=== PATIENT | female | born 1950 ===

== ENCOUNTER 2017-01-12 13:37 | Inpatient (IN) | payer MEDICARE ==
[2017-01-12 14:39] VITALS: BMI 20.7
[2017-01-12] MEDS ORDERED: Albuterol HFA 90 mcg/actuation (8 g) INH PRN (14:46)
[2017-01-12] MEDS ORDERED: Tiotropium 18 mcg Cap For Inhalation INH SCH (15:00)
[2017-01-12] MEDS ORDERED: Lactobacillus Acidophilus 500 MU Cap PO SCH (15:00)
--- NOTE | 2017-01-12 15:03 | CP.PCM.HP ---
History of Present Illness - History of Present Illness History of Present Illness: Patient improving well on present rx, vanco po and flagyl iv. After a conversation with ID territory sales consultant will continue the present therapy for better coverage of C.Diff and for diverticulitis. Patient presented with failure to OP rx with recurrence of colitis and diverticulitis. It is clinically necessary to continue on the present dual rx, in consideration of the significant positive clinical response, for the best interest of the patient care and prevent possible relapse of her condition. On presentation patient was clinically septic with hemodynamically instability. ID consult appreciated. Will continue care on SNF level to complete 10 days of iv and oral rx. Vanco Po schedule 01/11 to 01/25 qid 01/26 to 02/02 tid 02/02 to 02/09 od 02/10 to 02/16 eod 11/08 to 12/07 q 3 days flagyl schedule to 01/22 repeat ctscan of adb on 01/19 Present on Admission - Present on Admission Any Indicators Present on Admission: No Review of Systems - Constitutional Constitutional: As Per HPI - EENT Eyes: As Per HPI - Cardiovascular Cardiovascular: As Per HPI - Respiratory Respiratory: As Per HPI - Gastrointestinal Gastrointestinal: As Per HPI - Musculoskeletal Musculoskeletal: As Per HPI - Neurological Neurological: As Per HPI - Psychiatric Psychiatric: As Per HPI Past Patient History - Infectious Disease Hx of Infectious Diseases: None, C.diff - Tetanus Immunizations Tetanus Immunization: Unknown - Past Medical History & Family History Past Medical History?: Yes - Past Social History Smoking Status: Current Some Days Smoker - CARDIAC Hx Cardiac Disorders: Yes Hx Hypercholesterolemia: Yes - PULMONARY Hx Chronic Obstructive Pulmonary Disease (COPD): Yes - NEUROLOGICAL Hx Neurological Disorder: Yes Other/Comment: WEAKNESS - HEENT Hx HEENT Problems: No - RENAL Hx Chronic Kidney Disease: No - ENDOCRINE/METABOLIC Hx Endocrine Disorders: No - HEMATOLOGICAL/ONCOLOGICAL Hx Blood Disorders: No - INTEGUMENTARY Hx Dermatological Problems: No - MUSCULOSKELETAL/RHEUMATOLOGICAL Hx Musculoskeletal Disorders: No Hx Falls: No - GASTROINTESTINAL Hx Gastrointestinal Disorders: Yes Hx Clostridium Difficile: Yes Hx Diarrhea: Yes Hx Diverticulitis: Yes - GENITOURINARY/GYNECOLOGICAL Hx Genitourinary Disorders: No - PSYCHIATRIC Hx Psychophysiologic Disorder: Yes Hx Anxiety: Yes Hx Depression: Yes Hx Substance Use: No - SURGICAL HISTORY Hx Surgeries: Yes Hx Appendectomy: Yes - ANESTHESIA Hx Anesthesia: Yes Hx Anesthesia Reactions: No Hx Malignant Hyperthermia: No Meds Allergies/Adverse Reactions: Allergies Allergy/AdvReac Type Severity Reaction Status Date / Time No Known Allergies Allergy Verified 01/06/17 13:17 Physical Exam - Constitutional Appears: Non-toxic - Head Exam Head Exam: ATRAUMATIC, NORMAL INSPECTION, NORMOCEPHALIC - Eye Exam Eye Exam: Normal appearance - ENT Exam ENT Exam: Mucous Membranes Moist - Neck Exam Neck exam: Positive for: Full Rom - Respiratory Exam Respiratory Exam: Clear to Auscultation Bilateral - Cardiovascular Exam Cardiovascular Exam: REGULAR RHYTHM - GI/Abdominal Exam GI & Abdominal Exam: Normal Bowel Sounds - Extremities Exam Extremities exam: Positive for: normal inspection - Neurological Exam Neurological exam: Alert, CN II-XII Intact, Normal Gait, Oriented x3 - Psychiatric Exam Psychiatric exam: Normal Affect - Skin Skin Exam: Normal Color Assessment & Plan (1) Acute diverticulitis Status: Acute Priority: Medium (2) Abdominal pain Status: Acute (3) C. difficile colitis Status: Suspected Priority: High (4) COPD (chronic obstructive pulmonary disease) Status: Chronic - Assessment and Plan (Free Text) Plan: Continue rx as per above schedule
[2017-01-12] MEDS ORDERED: metroNIDAZOLE 500mg/100ml NS IVPB SCH (17:00)
[2017-01-12 17:15] VITALS: RESP 20
[2017-01-12] MEDS: METRONIDAZOLE 500 MG/100 ML IVPB SCH (18:07)
[2017-01-12] MEDS: NS IVPB SCH (18:07)
[2017-01-13] MEDS: METRONIDAZOLE 500 MG/100 ML IVPB SCH ×3 (01:33→17:00)
[2017-01-13] MEDS: NS IVPB SCH ×3 (01:33→17:00)
[2017-01-13] MEDS: Fluticasone-Salmeterol 100-50mcg Diskus IH SCH ×3 (08:17→21:38)
[2017-01-13] MEDS: Enoxaparin 40 mg Syringe SC SCH (08:18)
[2017-01-13] MEDS: Lactobacillus Acidophilus 500 MU Cap PO SCH ×2 (08:18→22:18)
[2017-01-13 10:23] LABS: BASO # 0.1 K/uL (0.0-0.2); BASO % 0.9 % (0.0-2.0); EOS # 0.5 K/uL (0.0-0.7); EOS % 6.1 % (0.0-4.0); HEMATOCRIT 39.9 % (34.0-47.0); LYMPH # 1.1 K/uL (1.0-4.3); LYMPH % 14.1 % (20.0-40.0); MEAN CELL VOLUME 90.9 fl (81.0-99.0); MEAN CORPUSCULAR HEMOGLOBIN 30.3 pg (27.0-31.0); MEAN CORPUSCULAR HGB CONC 33.4 g/dL (33.0-37.0); MONO % 13.5 % (0.0-10.0); NEUT # 5.1 K/uL (1.8-7.0); NEUT % 65.4 % (50.0-75.0); RED CELL DISTRIBUTION WIDTH 14.7 % (11.5-14.5); WHITE BLOOD COUNT 7.7 K/uL (4.8-10.8)
[2017-01-13 10:30] LABS: BLOOD UREA NITROGEN 14 mg/dl (7-17); CARBON DIOXIDE 25 mmol/L (22-30); CHLORIDE 104 mmol/L (98-107); GFR AFRICAN-AMERICAN > 60; GLUCOSE,RANDOM 125 mg/dL (65-105); POTASSIUM 3.9 MMOL/L (3.6-5.0); SODIUM 139 mmol/l (132-148)
--- NOTE | 2017-01-13 12:54 | CP.PCM.PN ---
Subjective - Date & Time of Evaluation Date of Evaluation: 01/13/17 Time of Evaluation: 12:54 - Subjective Subjective: Patient improving well Objective - Vital Signs/Intake and Output Vital Signs (last 24 hours): Temp Pulse Resp BP Pulse Ox 97.1 F L 70 20 115/69 99 01/13/17 08:11 01/13/17 08:11 01/13/17 08:11 01/13/17 08:11 01/13/17 08:11 - Medications Medications: Current Medications Albuterol (Ventolin Hfa 90 Mcg/Actuation (8 G)) 2 puff INH Q6 PRN PRN Reason: Wheezing Atorvastatin Calcium (Lipitor) 20 mg PO HS [facility] Last Admin: 01/12/17 22:03 Dose: 20 mg Enoxaparin Sodium (Lovenox) 40 mg SC DAILY [facility] PRN Reason: Protocol Last Admin: 01/13/17 08:18 Dose: 40 mg Famotidine (Pepcid) 20 mg PO BID [facility] Last Admin: 01/13/17 08:19 Dose: 20 mg Metronidazole (Flagyl 500mg/100ml Ns) 500 mls @ 500 mls/hr IVPB Q8 [facility] Last Admin: 01/13/17 08:18 Dose: 500 mls/hr Lactobacillus Acidophilus (Bacid Acidophilus) 2 cap PO Q12 [facility] Last Admin: 01/13/17 08:18 Dose: 2 cap Loratadine (Claritin) 10 mg PO DAILY [facility] Last Admin: 01/13/17 08:18 Dose: 10 mg Nicotine (Nicoderm Cq) 1 patch TD DAILY [facility] Last Admin: 01/13/17 08:19 Dose: 1 patch Fluticasone/Salmeterol (Advair Diskus 100/50) 1 puff IH Q12H [facility] Last Admin: 01/13/17 08:21 Dose: Not Given Tiotropium [place] (Spiriva) 18 mcg INH ONCE [facility] Vancomycin HCl (Vancocin (Oral/Rectal Use)) 125 mg PO TID [facility] PRN Reason: Protocol Stop: 02/02/17 22:00 Vancomycin HCl (Vancocin (Oral/Rectal Use)) 125 mg [place] QID [facility] PRN Reason: Protocol Stop: 01/25/17 20:00 Vancomycin HCl (Vancocin (Oral/Rectal Use)) 125 mg PO DAILY [facility] PRN Reason: Protocol Stop: 02/09/17 20:00 - Labs Labs: 01/13/17 10:00 01/13/17 10:00 - Constitutional Appears: No Acute Distress - Head Exam Head Exam: ATRAUMATIC, NORMAL INSPECTION, NORMOCEPHALIC - Eye Exam Eye Exam: Normal appearance - ENT Exam ENT Exam: Mucous Membranes Moist - Neck Exam Neck Exam: Full ROM - Respiratory Exam Respiratory Exam: Clear to Ausculation Bilateral - Cardiovascular Exam Cardiovascular Exam: REGULAR RHYTHM, +S1, +S2 - GI/Abdominal Exam GI & Abdominal Exam: Soft, Normal Bowel Sounds - Extremities Exam Extremities Exam: Normal Inspection - Neurological Exam Neurological Exam: Alert, Awake, CN II-XII Intact, Normal Gait, Oriented x3 - Psychiatric Exam Psychiatric exam: Normal Affect - Skin Skin Exam: Normal Color Assessment and Plan (1) Acute diverticulitis Status: Acute (2) Abdominal pain Status: Acute (3) C. difficile colitis Status: Suspected (4) COPD (chronic obstructive pulmonary disease) Status: Chronic - Assessment and Plan (Free Text) Plan: Continue present Rx.
[2017-01-13] MEDS: Vancomycin 500 mg (Oral/Rectal USE) PR SCH ×3 (13:03→21:39)
[2017-01-14] MEDS: NS IVPB SCH ×3 (00:12→16:30)
[2017-01-14] MEDS: METRONIDAZOLE 500 MG/100 ML IVPB SCH ×3 (00:12→16:30)
[2017-01-14] MEDS: Lactobacillus Acidophilus 500 MU Cap PO SCH ×2 (08:46→21:16)
[2017-01-14] MEDS: Fluticasone-Salmeterol 100-50mcg Diskus IH SCH ×2 (08:47→21:17)
[2017-01-14] MEDS: Enoxaparin 40 mg Syringe SC SCH (08:47)
[2017-01-14] MEDS: Vancomycin 500 mg (Oral/Rectal USE) PR SCH ×4 (08:49→21:17)
[2017-01-14] MEDS: Tiotropium 18 mcg Cap For Inhalation INH SCH ×2 (11:00→16:30)
--- NOTE | 2017-01-14 15:45 | CP.PCM.PN ---
Subjective - Date & Time of Evaluation Date of Evaluation: 01/14/17 Time of Evaluation: 15:45 - Subjective Subjective: Comfortable Objective - Vital Signs/Intake and Output Vital Signs (last 24 hours): Temp Pulse Resp BP Pulse Ox 97.9 F 69 20 105/65 99 01/14/17 07:37 01/14/17 07:37 01/14/17 07:37 01/14/17 07:37 01/14/17 07:37 - Medications Medications: Current Medications Albuterol (Ventolin Hfa 90 Mcg/Actuation (8 G)) 2 puff INH Q6 PRN PRN Reason: Wheezing Atorvastatin Calcium (Lipitor) 20 mg PO HS [facility] Last Admin: 01/13/17 21:38 Dose: 20 mg Enoxaparin Sodium (Lovenox) 40 mg [place] DAILY [facility] PRN Reason: Protocol Last Admin: 01/14/17 08:47 Dose: 40 mg Famotidine (Pepcid) 20 mg PO BID [facility] Last Admin: 01/14/17 08:46 Dose: 20 mg Metronidazole (Flagyl 500mg/100ml Ns) 500 mls @ 500 mls/hr IVPB Q8 [facility] Last Admin: 01/14/17 08:47 Dose: 500 mls/hr Lactobacillus Acidophilus (Bacid Acidophilus) 2 cap PO Q12 [facility] Last Admin: 01/14/17 08:46 Dose: 2 cap Loratadine (Claritin) 10 mg PO DAILY [facility] Last Admin: 01/14/17 08:46 Dose: 10 mg Nicotine (Nicoderm Cq) 1 patch TD DAILY [facility] Last Admin: 01/14/17 08:48 Dose: 1 patch Fluticasone/Salmeterol (Advair Diskus 100/50) 1 puff IH Q12H [facility] Last Admin: 01/14/17 08:47 Dose: Not Given Tiotropium [place] (Spiriva) 18 mcg INH DAILY [facility] Last Admin: 01/14/17 11:00 Dose: Not Given Vancomycin HCl (Vancocin (Oral/Rectal Use)) 125 mg PO TID [facility] PRN Reason: Protocol Stop: 02/02/17 22:00 Vancomycin HCl (Vancocin (Oral/Rectal Use)) 125 mg [place] QID [facility] PRN Reason: Protocol Stop: 01/25/17 20:00 Last Admin: 01/14/17 12:33 Dose: 125 mg Vancomycin HCl (Vancocin (Oral/Rectal Use)) 125 mg PO DAILY [facility] PRN Reason: Protocol Stop: 02/09/17 20:00 - Labs Labs: 01/13/17 10:00 01/13/17 10:00 - Constitutional Appears: No Acute Distress - Head Exam Head Exam: ATRAUMATIC, NORMAL INSPECTION, NORMOCEPHALIC - Eye Exam Eye Exam: Normal appearance - ENT Exam ENT Exam: Mucous Membranes Moist - Neck Exam Neck Exam: Full ROM - Respiratory Exam Respiratory Exam: Clear to Ausculation Bilateral - Cardiovascular Exam Cardiovascular Exam: REGULAR RHYTHM, +S1, +S2 - GI/Abdominal Exam GI & Abdominal Exam: Soft, Normal Bowel Sounds - Extremities Exam Extremities Exam: Full ROM - Neurological Exam Neurological Exam: Alert, Awake, CN II-XII Intact, Normal Gait, Oriented x3 - Psychiatric Exam Psychiatric exam: Normal Affect - Skin Skin Exam: Normal Color Assessment and Plan (1) Acute diverticulitis Status: Acute (2) Abdominal pain Status: Acute (3) C. difficile colitis Status: Suspected (4) COPD (chronic obstructive pulmonary disease) Status: Chronic - Assessment and Plan (Free Text) Plan: Continue present rx
[2017-01-15] MEDS: METRONIDAZOLE 500 MG/100 ML IVPB SCH ×3 (00:27→17:15)
[2017-01-15] MEDS: NS IVPB SCH ×3 (00:27→17:15)
[2017-01-15] MEDS: Tiotropium 18 mcg Cap For Inhalation INH SCH (08:23)
[2017-01-15] MEDS: Enoxaparin 40 mg Syringe SC SCH (08:24)
[2017-01-15] MEDS: Vancomycin 500 mg (Oral/Rectal USE) PR SCH ×4 (08:25→21:32)
[2017-01-15] MEDS: Fluticasone-Salmeterol 100-50mcg Diskus IH SCH ×2 (08:25→21:30)
[2017-01-15] MEDS: Lactobacillus Acidophilus 500 MU Cap PO SCH ×2 (08:30→21:31)
--- NOTE | 2017-01-15 10:08 | CP.PCM.CON ---
History of Present Illness - History of Present Illness History of Present Illness: This 66 year ld female, a cigarette smoker who recently quit, was admitted to [facility] for continued antibiotic therapy foe a recurrent episode of acute diverticulitis. Her respiratory status has been well controlled with the use of Breo Ellipta 100mcg once daily and Spiriva Respimat 5mcg once daily. She has been followed as an outpatient for COPD and has recently stopped smoking with the aid of Nicotine replacement patches. Her past medical history includes Bronchitis and Hyperlipidemia, but no pneumonia, asthma or tuberculosis. There are no known drug or seasonal allergies. Past Patient History - Infectious Disease Hx of Infectious Diseases: None, C.diff - Tetanus Immunizations Tetanus Immunization: Unknown - Past Medical History & Family History Past Medical History?: Yes - Past Social History Smoking Status: Light Smoker < 10 Cigarettes Daily Chewing Tobacco Use: No Cigar Use: No Alcohol: Social Drugs: Denies Home Situation {Lives}: With Family - CARDIAC Hx Hypercholesterolemia: Yes - PULMONARY Hx Chronic Obstructive Pulmonary Disease (COPD): Yes - NEUROLOGICAL Hx Neurological Disorder: Yes Other/Comment: WEAKNESS - HEENT Hx HEENT Problems: No - RENAL Hx Chronic Kidney Disease: No - ENDOCRINE/METABOLIC Hx Endocrine Disorders: No - HEMATOLOGICAL/ONCOLOGICAL Hx Blood Disorders: No - INTEGUMENTARY Hx Dermatological Problems: No - MUSCULOSKELETAL/RHEUMATOLOGICAL Hx Musculoskeletal Disorders: No Hx Falls: No - GASTROINTESTINAL Hx Clostridium Difficile: Yes Hx Diarrhea: Yes Hx Diverticulitis: Yes - GENITOURINARY/GYNECOLOGICAL Hx Genitourinary Disorders: No - PSYCHIATRIC Hx Anxiety: Yes Hx Depression: Yes Hx Substance Use: No - SURGICAL HISTORY Hx Appendectomy: Yes - ANESTHESIA Hx Anesthesia: Yes Hx Anesthesia Reactions: No Hx Malignant Hyperthermia: No Meds Allergies/Adverse Reactions: Allergies Allergy/AdvReac Type Severity Reaction Status Date / Time No Known Allergies Allergy Verified 01/06/17 13:17 - Medications Medications: Current Medications Albuterol (Ventolin Hfa 90 Mcg/Actuation (8 G)) 2 puff INH Q6 PRN PRN Reason: Wheezing Atorvastatin Calcium (Lipitor) 20 mg PO HS [facility] Last Admin: 01/14/17 21:16 Dose: 20 mg Enoxaparin Sodium (Lovenox) 40 mg SC DAILY [facility] PRN Reason: Protocol Last Admin: 01/15/17 08:24 Dose: 40 mg Famotidine (Pepcid) 20 mg PO BID [facility] Last Admin: 01/15/17 08:23 Dose: 20 mg Metronidazole (Flagyl 500mg/100ml Ns) 500 mls @ 500 mls/hr IVPB Q8 [facility] Last Admin: 01/15/17 08:30 Dose: 500 mls/hr Lactobacillus Acidophilus (Bacid Acidophilus) 2 cap PO Q12 [facility] Last Admin: 01/15/17 08:30 Dose: 2 cap Loratadine (Claritin) 10 mg PO DAILY [facility] Last Admin: 01/15/17 08:23 Dose: 10 mg Nicotine (Nicoderm Cq) 1 patch TD DAILY [facility] Last Admin: 01/15/17 08:22 Dose: 1 patch Fluticasone/Salmeterol (Advair Diskus 100/50) 1 puff IH Q12H [facility] Last Admin: 01/15/17 08:25 Dose: Not Given Tiotropium [place] (Spiriva) 18 mcg INH DAILY [facility] Last Admin: 01/15/17 08:23 Dose: 18 mcg Vancomycin HCl (Vancocin (Oral/Rectal Use)) 125 mg PO TID [facility] PRN Reason: Protocol Stop: 02/02/17 22:00 Vancomycin HCl (Vancocin (Oral/Rectal Use)) 125 mg [place] QID [facility] PRN Reason: Protocol Stop: 01/25/17 20:00 Last Admin: 01/15/17 08:25 Dose: 125 mg Vancomycin HCl (Vancocin (Oral/Rectal Use)) 125 mg PO DAILY [facility] PRN Reason: Protocol Stop: 02/09/17 20:00 Physical Exam - Additional Findings Additional findings: Thin, well-developed female in no acute distress. Her memory appears intact. She is cooperative with the examination. Follows all commands. Moves all extremities. Speech is fluid. Pharynx is pink and mucous membranes are moist. No exudate. Neck is supple and trachea is midline. No neck vein distention or carotid bruit. No dullness on chest percussion. Equal expansion. Breath sounds are diminished bilaterally. No audible rales or wheezes are heard. No bronchial breathing or egophony. Heart sounds are well heard and the rhythm is regular. No murmur. Abdomen is soft with some mild tenderness to palpation. Bowel sounds are present. No dependent edema of the lower extremities. No cyanosis. No calf tenderness. Results - Vital Signs Recent Vital Signs: Last Vital Signs Temp 98.4 F 01/15/17 08:18 Pulse 87 01/15/17 08:18 Resp 20 01/15/17 08:18 BP 90/70 L 01/15/17 08:18 Pulse Ox 87 L 01/15/17 08:18 - Labs Result Diagrams: 01/20/17 08:20 01/20/17 08:20 Assessment & Plan (1) Acute diverticulitis Status: Acute Priority: Medium (2) COPD (chronic obstructive pulmonary disease) Status: Chronic Priority: Medium - Assessment and Plan (Free Text) Plan: Resume long-acting beta agonist with long-acting muscarinic agent. - Date & Time Date: 01/15/17 Time: 10:00
[2017-01-15] MEDS ORDERED: BREO ELLIPTA INH SCH (10:11)
[2017-01-15] MEDS: BREO ELLIPTA INH SCH (12:53)
--- NOTE | 2017-01-15 13:17 | CP.PCM.PN ---
Subjective - Date & Time of Evaluation Date of Evaluation: 01/15/17 Time of Evaluation: 13:19 - Subjective Subjective: Comfortable non in distress. Objective - Vital Signs/Intake and Output Vital Signs (last 24 hours): Temp Pulse Resp BP Pulse Ox 98.4 F 87 20 90/70 L 87 L 01/15/17 08:18 01/15/17 08:18 01/15/17 08:18 01/15/17 08:18 01/15/17 08:18 - Medications Medications: Current Medications Albuterol (Ventolin Hfa 90 Mcg/Actuation (8 G)) 2 puff INH Q6 PRN PRN Reason: Wheezing Atorvastatin Calcium (Lipitor) 20 mg PO HS [facility] Last Admin: 01/14/17 21:16 Dose: 20 mg Enoxaparin Sodium (Lovenox) 40 mg SC DAILY [facility] PRN Reason: Protocol Last Admin: 01/15/17 08:24 Dose: 40 mg Famotidine (Pepcid) 20 mg PO BID [facility] Last Admin: 01/15/17 08:23 Dose: 20 mg Home Med (Patient's Own Medication) 1 unit INH DAILY [facility] Last Admin: 01/15/17 12:53 Dose: 1 unit Metronidazole (Flagyl 500mg/100ml Ns) 500 mls @ 500 mls/hr IVPB Q8 [facility] Last Admin: 01/15/17 08:30 Dose: 500 mls/hr Lactobacillus Acidophilus (Bacid Acidophilus) 2 cap PO Q12 [facility] Last Admin: 01/15/17 08:30 Dose: 2 cap Loratadine (Claritin) 10 mg PO DAILY [facility] Last Admin: 01/15/17 08:23 Dose: 10 mg Nicotine (Nicoderm Cq) 1 patch TD DAILY [facility] Last Admin: 01/15/17 08:22 Dose: 1 patch Fluticasone/Salmeterol (Advair Diskus 100/50) 1 puff IH Q12H [facility] Stop: 01/15/17 23:59 Last Admin: 01/15/17 08:25 Dose: Not Given Tiotropium [place] (Spiriva) 18 mcg INH DAILY [facility] Last Admin: 01/15/17 08:23 Dose: 18 mcg Vancomycin HCl (Vancocin (Oral/Rectal Use)) 125 mg PO TID [facility] PRN Reason: Protocol Stop: 02/02/17 22:00 Vancomycin HCl (Vancocin (Oral/Rectal Use)) 125 mg [place] QID [facility] PRN Reason: Protocol Stop: 01/25/17 20:00 Last Admin: 01/15/17 12:54 Dose: 125 mg Vancomycin HCl (Vancocin (Oral/Rectal Use)) 125 mg PO DAILY [facility] PRN Reason: Protocol Stop: 02/09/17 20:00 - Labs Labs: 01/13/17 10:00 01/13/17 10:00 - Constitutional Appears: No Acute Distress - Head Exam Head Exam: ATRAUMATIC, NORMAL INSPECTION, NORMOCEPHALIC - Eye Exam Eye Exam: Normal appearance - ENT Exam ENT Exam: Mucous Membranes Moist - Neck Exam Neck Exam: Full ROM - Respiratory Exam Respiratory Exam: Clear to Ausculation Bilateral - Cardiovascular Exam Cardiovascular Exam: REGULAR RHYTHM, +S1, +S2 - GI/Abdominal Exam GI & Abdominal Exam: Soft, Normal Bowel Sounds - Extremities Exam Extremities Exam: Full ROM - Back Exam Back Exam: vertebral tenderness - Neurological Exam Neurological Exam: Alert, Awake, CN II-XII Intact, Oriented x3 - Psychiatric Exam Psychiatric exam: Normal Affect - Skin Skin Exam: Normal Color Assessment and Plan (1) Acute diverticulitis Status: Acute (2) Abdominal pain Status: Acute (3) C. difficile colitis Status: Suspected (4) COPD (chronic obstructive pulmonary disease) Status: Chronic - Assessment and Plan (Free Text) Plan: Continue present rx.
[2017-01-16] MEDS: NS IVPB SCH ×3 (00:48→16:45)
[2017-01-16] MEDS: METRONIDAZOLE 500 MG/100 ML IVPB SCH ×3 (00:48→16:45)
[2017-01-16] MEDS: Lactobacillus Acidophilus 500 MU Cap PO SCH ×2 (08:11→22:04)
[2017-01-16] MEDS: Enoxaparin 40 mg Syringe SC SCH (08:11)
[2017-01-16] MEDS: Tiotropium 18 mcg Cap For Inhalation INH SCH (08:12)
[2017-01-16] MEDS: BREO ELLIPTA INH SCH (08:12)
[2017-01-16] MEDS: Vancomycin 500 mg (Oral/Rectal USE) PO SCH (08:13)
[2017-01-16] MEDS: Vancomycin 500 mg (Oral/Rectal USE) PR SCH ×4 (08:15→22:04)
[2017-01-16] MEDS ORDERED: Home Med 1 UNIT INH SCH (09:00)
--- NOTE | 2017-01-16 20:50 | CP.PCM.PN ---
Subjective - Date & Time of Evaluation Date of Evaluation: 01/16/17 Time of Evaluation: 20:50 - Subjective Subjective: No new complains, comfortable. Objective - Vital Signs/Intake and Output Vital Signs (last 24 hours): Temp Pulse Resp BP Pulse Ox 98.8 F 79 20 106/64 97 01/16/17 20:19 01/16/17 20:19 01/16/17 20:19 01/16/17 20:19 01/16/17 20:19 - Medications Medications: Current Medications Albuterol (Ventolin Hfa 90 Mcg/Actuation (8 G)) 2 puff INH Q6 PRN PRN Reason: Wheezing Atorvastatin Calcium (Lipitor) 20 mg PO HS [facility] Last Admin: 01/15/17 21:31 Dose: 20 mg Famotidine (Pepcid) 20 mg PO BID [facility] Last Admin: 01/16/17 16:46 Dose: 20 mg Home Med (Patient's Own Medication) 1 unit INH DAILY [facility] Last Admin: 01/16/17 08:12 Dose: 1 unit Metronidazole (Flagyl 500mg/100ml Ns) 500 mls @ 500 mls/hr IVPB Q8 [facility] Last Admin: 01/16/17 16:45 Dose: 500 mls/hr Lactobacillus Acidophilus (Bacid Acidophilus) 2 cap PO Q12 [facility] Last Admin: 01/16/17 08:11 Dose: 2 cap Loratadine (Claritin) 10 mg PO DAILY [facility] Last Admin: 01/16/17 08:13 Dose: 10 mg Nicotine (Nicoderm Cq) 1 patch TD DAILY [facility] Last Admin: 01/16/17 08:14 Dose: 1 patch Tiotropium [place] (Spiriva) 18 mcg INH DAILY [facility] Last Admin: 01/16/17 08:12 Dose: 18 mcg Vancomycin HCl (Vancocin (Oral/Rectal Use)) 125 mg PO TID [facility] PRN Reason: Protocol Stop: 02/02/17 22:00 Vancomycin HCl (Vancocin (Oral/Rectal Use)) 125 mg [place] QID [facility] PRN Reason: Protocol Stop: 01/25/17 20:00 Last Admin: 01/16/17 16:47 Dose: 125 mg Vancomycin HCl (Vancocin (Oral/Rectal Use)) 125 mg PO DAILY [facility] PRN Reason: Protocol Stop: 02/09/17 20:00 - Labs Labs: 01/13/17 10:00 01/13/17 10:00 - Constitutional Appears: No Acute Distress - Head Exam Head Exam: ATRAUMATIC, NORMAL INSPECTION, NORMOCEPHALIC - Eye Exam Eye Exam: Normal appearance - ENT Exam ENT Exam: Mucous Membranes Moist - Neck Exam Neck Exam: Full ROM - Respiratory Exam Respiratory Exam: Clear to Ausculation Bilateral - Cardiovascular Exam Cardiovascular Exam: REGULAR RHYTHM, +S1, +S2 - GI/Abdominal Exam GI & Abdominal Exam: Soft, Normal Bowel Sounds - Extremities Exam Extremities Exam: Full ROM, Normal Inspection - Back Exam Back Exam: NORMAL INSPECTION - Neurological Exam Neurological Exam: Alert, Awake, CN II-XII Intact, Normal Gait, Oriented x3 - Psychiatric Exam Psychiatric exam: Normal Affect - Skin Skin Exam: Normal Color Assessment and Plan (1) Acute diverticulitis Status: Acute (2) Abdominal pain Status: Acute (3) C. difficile colitis Status: Suspected (4) COPD (chronic obstructive pulmonary disease) Status: Chronic - Assessment and Plan (Free Text) Plan: Continue present rx
[2017-01-17] MEDS: METRONIDAZOLE 500 MG/100 ML IVPB SCH (01:04)
[2017-01-17] MEDS: NS IVPB SCH (01:04)
[2017-01-17] MEDS: Tiotropium 18 mcg Cap For Inhalation INH SCH (09:03)
[2017-01-17] MEDS: Vancomycin 500 mg (Oral/Rectal USE) PR SCH ×4 (09:05→21:21)
[2017-01-17] MEDS: BREO ELLIPTA INH SCH (09:05)
[2017-01-17] MEDS: metroNIDAZOLE 500mg/100ml NS 100 ML IVPB SCH ×2 (09:06→17:13)
[2017-01-17] MEDS: Lactobacillus Acidophilus 500 MU Cap PO SCH ×2 (09:07→21:21)
--- NOTE | 2017-01-17 10:09 | CP.PCM.PN ---
Subjective - Date & Time of Evaluation Date of Evaluation: 01/17/17 Time of Evaluation: 10:09 - Subjective Subjective: No new c/o, comfortable Objective - Vital Signs/Intake and Output Vital Signs (last 24 hours): Temp Pulse Resp BP Pulse Ox 98.2 F 67 20 104/60 95 01/17/17 08:02 01/17/17 08:02 01/17/17 08:02 01/17/17 08:02 01/17/17 08:02 - Medications Medications: Current Medications Albuterol (Ventolin Hfa 90 Mcg/Actuation (8 G)) 2 puff INH Q6 PRN PRN Reason: Wheezing Atorvastatin Calcium (Lipitor) 20 mg PO HS [facility] Last Admin: 01/16/17 22:04 Dose: 20 mg Famotidine (Pepcid) 20 mg PO BID [facility] Last Admin: 01/17/17 09:03 Dose: 20 mg Home Med (Patient's Own Medication) 1 unit INH DAILY [facility] Last Admin: 01/17/17 09:05 Dose: 1 unit Metronidazole (Flagyl 500mg/100ml Ns) 100 mls @ 100 mls/hr IVPB Q8 [facility] Last Admin: 01/17/17 09:06 Dose: 100 mls/hr Lactobacillus Acidophilus (Bacid Acidophilus) 2 cap PO Q12 [facility] Last Admin: 01/17/17 09:07 Dose: 2 cap Loratadine (Claritin) 10 mg PO DAILY [facility] Last Admin: 01/17/17 09:03 Dose: 10 mg Nicotine (Nicoderm Cq) 1 patch TD DAILY [facility] Last Admin: 01/17/17 09:04 Dose: 1 patch Tiotropium [place] (Spiriva) 18 mcg INH DAILY [facility] Last Admin: 01/17/17 09:03 Dose: 18 mcg Vancomycin HCl (Vancocin (Oral/Rectal Use)) 125 mg PO TID [facility] PRN Reason: Protocol Stop: 02/02/17 22:00 Vancomycin HCl (Vancocin (Oral/Rectal Use)) 125 mg [place] QID [facility] PRN Reason: Protocol Stop: 01/25/17 20:00 Last Admin: 01/17/17 09:05 Dose: 125 mg Vancomycin HCl (Vancocin (Oral/Rectal Use)) 125 mg PO DAILY [facility] PRN Reason: Protocol Stop: 02/09/17 20:00 - Labs Labs: 01/13/17 10:00 01/13/17 10:00 - Constitutional Appears: No Acute Distress - Head Exam Head Exam: ATRAUMATIC, NORMAL INSPECTION, NORMOCEPHALIC - Eye Exam Eye Exam: Normal appearance - ENT Exam ENT Exam: Mucous Membranes Moist - Neck Exam Neck Exam: Full ROM - Respiratory Exam Respiratory Exam: Clear to Ausculation Bilateral - Cardiovascular Exam Cardiovascular Exam: REGULAR RHYTHM, +S1, +S2 - GI/Abdominal Exam GI & Abdominal Exam: Soft, Normal Bowel Sounds - Extremities Exam Extremities Exam: Normal Inspection - Neurological Exam Neurological Exam: Alert, Awake, CN II-XII Intact, Normal Gait, Oriented x3 - Psychiatric Exam Psychiatric exam: Normal Affect - Skin Skin Exam: Normal Color Assessment and Plan (1) Acute diverticulitis Status: Acute (2) Abdominal pain Status: Acute (3) C. difficile colitis Status: Suspected (4) COPD (chronic obstructive pulmonary disease) Status: Chronic - Assessment and Plan (Free Text) Plan: Continue present rx.
[2017-01-17 10:48] LABS: BASO # 0.1 K/uL (0.0-0.2); BASO % 1.1 % (0.0-2.0); EOS # 0.3 K/uL (0.0-0.7); HEMATOCRIT 37.2 % (34.0-47.0); LYMPH % 16.5 % (20.0-40.0); MEAN CELL VOLUME 91.4 fl (81.0-99.0); MEAN CORPUSCULAR HEMOGLOBIN 30.4 pg (27.0-31.0); MEAN CORPUSCULAR HGB CONC 33.3 g/dL (33.0-37.0); MEAN PLATELET VOLUME 10.1 fl (7.2-11.7); MONO # 0.6 K/uL (0.0-0.8); MONO % 10.3 % (0.0-10.0); NEUT # 4.3 K/uL (1.8-7.0); NEUT % 68.1 % (50.0-75.0); NRBC % 0.1 % (0.0-0.0); RED CELL DISTRIBUTION WIDTH 14.9 % (11.5-14.5); WHITE BLOOD COUNT 6.3 K/uL (4.8-10.8)
[2017-01-17 11:12] LABS: BLOOD UREA NITROGEN 11 mg/dl (7-17); CALCIUM 9.3 mg/dL (8.4-10.2); CARBON DIOXIDE 27 mmol/L (22-30); CHLORIDE 104 mmol/L (98-107); GFR AFRICAN-AMERICAN > 60; GLUCOSE,RANDOM 149 mg/dL (65-105); POTASSIUM 3.7 MMOL/L (3.6-5.0); SODIUM 140 mmol/l (132-148)
[2017-01-18] MEDS: metroNIDAZOLE 500mg/100ml NS 100 ML IVPB SCH ×3 (01:53→17:24)
[2017-01-18] MEDS: BREO ELLIPTA INH SCH (08:51)
[2017-01-18] MEDS: Vancomycin 500 mg (Oral/Rectal USE) PR SCH ×4 (08:52→21:29)
[2017-01-18] MEDS: Lactobacillus Acidophilus 500 MU Cap PO SCH ×2 (08:53→21:28)
[2017-01-18] MEDS: Tiotropium 18 mcg Cap For Inhalation INH SCH (09:02)
--- NOTE | 2017-01-18 11:20 | CP.PCM.PN ---
Subjective - Date & Time of Evaluation Date of Evaluation: 01/18/17 Time of Evaluation: 11:18 - Subjective Subjective: Lying in bed comfortably, appears to be doing well on current regimen. No further complaints of abdominal discomfort. No diarrhea. Respiratory symptoms have subsided and she appears stable with the use of long- acting beta agonist as well as long acting muscarinic agent. We'll continue with the same regimen. Objective - Vital Signs/Intake and Output Vital Signs (last 24 hours): Temp Pulse Resp BP Pulse Ox 97.8 F 80 20 92/69 L 99 01/18/17 09:00 01/18/17 09:00 01/18/17 09:00 01/18/17 09:00 01/18/17 09:00 - Medications Medications: Current Medications Albuterol (Ventolin Hfa 90 Mcg/Actuation (8 G)) 2 puff INH Q6 PRN PRN Reason: Wheezing Atorvastatin Calcium (Lipitor) 20 mg PO HS [facility] Last Admin: 01/17/17 21:21 Dose: 20 mg Famotidine (Pepcid) 20 mg PO BID [facility] Last Admin: 01/18/17 08:52 Dose: 20 mg Home Med (Patient's Own Medication) 1 unit INH DAILY [facility] Last Admin: 01/18/17 08:51 Dose: 1 unit Metronidazole (Flagyl 500mg/100ml Ns) 100 mls @ 100 mls/hr IVPB Q8 [facility] Last Admin: 01/18/17 08:53 Dose: 100 mls/hr Lactobacillus Acidophilus (Bacid Acidophilus) 2 cap PO Q12 [facility] Last Admin: 01/18/17 08:53 Dose: 2 cap Loratadine (Claritin) 10 mg PO DAILY [facility] Last Admin: 01/18/17 08:52 Dose: 10 mg Nicotine (Nicoderm Cq) 1 patch TD DAILY [facility] Last Admin: 01/18/17 08:52 Dose: 1 patch Tiotropium [place] (Spiriva) 18 mcg INH DAILY [facility] Last Admin: 01/18/17 09:02 Dose: 18 mcg Vancomycin HCl (Vancocin (Oral/Rectal Use)) 125 mg PO TID [facility] PRN Reason: Protocol Stop: 02/02/17 22:00 Vancomycin HCl (Vancocin (Oral/Rectal Use)) 125 mg [place] QID [facility] PRN Reason: Protocol Stop: 01/25/17 20:00 Last Admin: 01/18/17 08:52 Dose: 125 mg Vancomycin HCl (Vancocin (Oral/Rectal Use)) 125 mg PO DAILY [facility] PRN Reason: Protocol Stop: 02/09/17 20:00 - Labs Labs: 01/17/17 10:30 01/17/17 10:30
--- NOTE | 2017-01-18 12:21 | CP.PCM.PN ---
Subjective - Date & Time of Evaluation Date of Evaluation: 01/18/17 Time of Evaluation: 12:21 - Subjective Subjective: Not in distress, comfortable. Objective - Vital Signs/Intake and Output Vital Signs (last 24 hours): Temp Pulse Resp BP Pulse Ox 97.8 F 80 20 92/69 L 99 01/18/17 09:00 01/18/17 09:00 01/18/17 09:00 01/18/17 09:00 01/18/17 09:00 - Medications Medications: Current Medications Albuterol (Ventolin Hfa 90 Mcg/Actuation (8 G)) 2 puff INH Q6 PRN PRN Reason: Wheezing Atorvastatin Calcium (Lipitor) 20 mg PO HS [facility] Last Admin: 01/17/17 21:21 Dose: 20 mg Famotidine (Pepcid) 20 mg PO BID [facility] Last Admin: 01/18/17 08:52 Dose: 20 mg Home Med (Patient's Own Medication) 1 unit INH DAILY [facility] Last Admin: 01/18/17 08:51 Dose: 1 unit Metronidazole (Flagyl 500mg/100ml Ns) 100 mls @ 100 mls/hr IVPB Q8 [facility] Last Admin: 01/18/17 08:53 Dose: 100 mls/hr Lactobacillus Acidophilus (Bacid Acidophilus) 2 cap PO Q12 [facility] Last Admin: 01/18/17 08:53 Dose: 2 cap Loratadine (Claritin) 10 mg PO DAILY [facility] Last Admin: 01/18/17 08:52 Dose: 10 mg Nicotine (Nicoderm Cq) 1 patch TD DAILY [facility] Last Admin: 01/18/17 08:52 Dose: 1 patch Tiotropium [place] (Spiriva) 18 mcg INH DAILY [facility] Last Admin: 01/18/17 09:02 Dose: 18 mcg Vancomycin HCl (Vancocin (Oral/Rectal Use)) 125 mg PO TID [facility] PRN Reason: Protocol Stop: 02/02/17 22:00 Vancomycin HCl (Vancocin (Oral/Rectal Use)) 125 mg [place] QID [facility] PRN Reason: Protocol Stop: 01/25/17 20:00 Last Admin: 01/18/17 08:52 Dose: 125 mg Vancomycin HCl (Vancocin (Oral/Rectal Use)) 125 mg PO DAILY [facility] PRN Reason: Protocol Stop: 02/09/17 20:00 - Labs Labs: 01/17/17 10:30 01/17/17 10:30 - Constitutional Appears: No Acute Distress - Head Exam Head Exam: ATRAUMATIC, NORMAL INSPECTION, NORMOCEPHALIC - Eye Exam Eye Exam: Normal appearance - ENT Exam ENT Exam: Mucous Membranes Moist - Neck Exam Neck Exam: Full ROM - Respiratory Exam Respiratory Exam: Clear to Ausculation Bilateral - GI/Abdominal Exam GI & Abdominal Exam: Soft, Normal Bowel Sounds - Extremities Exam Extremities Exam: Normal Inspection - Neurological Exam Neurological Exam: Alert, Awake, CN II-XII Intact, Normal Gait, Oriented x3 - Psychiatric Exam Psychiatric exam: Normal Affect - Skin Skin Exam: Normal Color Assessment and Plan (1) Acute diverticulitis Status: Acute (2) Abdominal pain Status: Acute (3) C. difficile colitis Status: Suspected (4) COPD (chronic obstructive pulmonary disease) Status: Chronic - Assessment and Plan (Free Text) Plan: Continue present rx Will continue iv rx x 1 week to 01/25
[2017-01-19] MEDS: metroNIDAZOLE 500mg/100ml NS 100 ML IVPB SCH ×3 (01:33→16:24)
[2017-01-19] MEDS: BREO ELLIPTA INH SCH (08:48)
[2017-01-19] MEDS: Lactobacillus Acidophilus 500 MU Cap PO SCH ×2 (08:48→21:41)
[2017-01-19] MEDS: Tiotropium 18 mcg Cap For Inhalation INH SCH (08:50)
[2017-01-19] MEDS: Vancomycin 500 mg (Oral/Rectal USE) PR SCH ×2 (08:50→12:37)
--- NOTE | 2017-01-19 14:59 | CP.PCM.PN ---
Subjective - Date & Time of Evaluation Date of Evaluation: 01/19/17 Time of Evaluation: 14:59 - Subjective Subjective: Comfortable Objective - Vital Signs/Intake and Output Vital Signs (last 24 hours): Temp Pulse Resp BP Pulse Ox 98.1 F 72 20 101/63 97 01/19/17 08:24 01/19/17 08:24 01/19/17 08:24 01/19/17 08:24 01/19/17 08:24 - Medications Medications: Current Medications Acetaminophen (Tylenol 325mg Tab) 325 mg PO Q6 PRN PRN Reason: Pain, moderate (4-7) Albuterol (Ventolin Hfa 90 Mcg/Actuation (8 G)) 2 puff INH Q6 PRN PRN Reason: Wheezing Atorvastatin Calcium (Lipitor) 20 mg PO HS [facility] Last Admin: 01/18/17 21:29 Dose: 20 mg Famotidine (Pepcid) 20 mg PO BID [facility] Last Admin: 01/19/17 08:49 Dose: 20 mg Home Med (Patient's Own Medication) 1 unit INH DAILY [facility] Last Admin: 01/19/17 08:48 Dose: 1 unit Metronidazole (Flagyl 500mg/100ml Ns) 100 mls @ 100 mls/hr IVPB Q8 [facility] Last Admin: 01/19/17 08:49 Dose: 100 mls/hr Lactobacillus Acidophilus (Bacid Acidophilus) 2 cap PO Q12 [facility] Last Admin: 01/19/17 08:48 Dose: 2 cap Loratadine (Claritin) 10 mg PO DAILY [facility] Last Admin: 01/19/17 08:50 Dose: 10 mg Nicotine (Nicoderm Cq) 1 patch TD DAILY [facility] Last Admin: 01/19/17 08:49 Dose: 1 patch Tiotropium [place] (Spiriva) 18 mcg INH DAILY [facility] Last Admin: 01/19/17 08:50 Dose: 18 mcg Vancomycin HCl (Vancocin (Oral/Rectal Use)) 125 mg PO TID [facility] PRN Reason: Protocol Stop: 02/02/17 22:00 Vancomycin HCl (Vancocin (Oral/Rectal Use)) 125 mg PO DAILY [facility] PRN Reason: Protocol Stop: 02/09/17 20:00 - Labs Labs: 01/17/17 10:30 01/17/17 10:30 - Constitutional Appears: No Acute Distress - Head Exam Head Exam: ATRAUMATIC, NORMAL INSPECTION, NORMOCEPHALIC - Eye Exam Eye Exam: Normal appearance - ENT Exam ENT Exam: Mucous Membranes Moist - Neck Exam Neck Exam: Full ROM - Respiratory Exam Respiratory Exam: Clear to Ausculation Bilateral - Cardiovascular Exam Cardiovascular Exam: REGULAR RHYTHM, +S1, +S2 - GI/Abdominal Exam GI & Abdominal Exam: Normal Bowel Sounds - Extremities Exam Extremities Exam: Full ROM - Neurological Exam Neurological Exam: Alert, Awake, CN II-XII Intact, Normal Gait, Oriented x3 - Psychiatric Exam Psychiatric exam: Normal Affect - Skin Skin Exam: Normal Color Assessment and Plan (1) Acute diverticulitis Status: Acute (2) Abdominal pain Status: Acute (3) C. difficile colitis Status: Suspected (4) COPD (chronic obstructive pulmonary disease) Status: Chronic - Assessment and Plan (Free Text) Plan: Continue present Rx
[2017-01-19] MEDS: Vancomycin 500 mg (Oral/Rectal USE) PO SCH ×2 (17:47→21:41)
[2017-01-20] MEDS: metroNIDAZOLE 500mg/100ml NS 100 ML IVPB SCH ×3 (01:50→17:35)
[2017-01-20] MEDS: Lactobacillus Acidophilus 500 MU Cap PO SCH ×2 (08:29→21:00)
[2017-01-20] MEDS: BREO ELLIPTA INH SCH (08:30)
[2017-01-20] MEDS: Tiotropium 18 mcg Cap For Inhalation INH SCH (08:31)
[2017-01-20] MEDS: Vancomycin 500 mg (Oral/Rectal USE) PO SCH ×5 (08:32→21:24)
[2017-01-20 09:29] LABS: BASO # 0.1 K/uL (0.0-0.2); EOS # 0.2 K/uL (0.0-0.7); EOS % 2.5 % (0.0-4.0); HEMATOCRIT 39.5 % (34.0-47.0); LYMPH # 1.5 K/uL (1.0-4.3); LYMPH % 18.2 % (20.0-40.0); MEAN CELL VOLUME 90.8 fl (81.0-99.0); MEAN CORPUSCULAR HEMOGLOBIN 30.9 pg (27.0-31.0); MEAN PLATELET VOLUME 10.3 fl (7.2-11.7); MONO # 0.4 K/uL (0.0-0.8); NEUT % 73.3 % (50.0-75.0); NRBC % 0.1 % (0.0-0.0); WHITE BLOOD COUNT 8.2 K/uL (4.8-10.8)
[2017-01-20 09:43] LABS: BLOOD UREA NITROGEN 15 mg/dl (7-17); CALCIUM 9.3 mg/dL (8.4-10.2); CARBON DIOXIDE 24 mmol/L (22-30); CHLORIDE 103 mmol/L (98-107); GFR AFRICAN-AMERICAN > 60; GLUCOSE,RANDOM 187 mg/dL (65-105); POTASSIUM 3.7 MMOL/L (3.6-5.0); SODIUM 138 mmol/l (132-148)
--- NOTE | 2017-01-20 10:59 | CP.PCM.PN ---
Subjective - Date & Time of Evaluation Date of Evaluation: 01/20/17 Time of Evaluation: 10:57 - Subjective Subjective: Appears stable from a respiratory standpoint. Remains on parenteral antibiotic therapy. Lungs are clear to percussion and auscultation. Continue same regimen. Objective - Vital Signs/Intake and Output Vital Signs (last 24 hours): Temp Pulse Resp BP Pulse Ox 98.4 F 71 20 107/65 97 01/20/17 07:59 01/20/17 07:59 01/20/17 07:59 01/20/17 07:59 01/20/17 07:59 - Medications Medications: Current Medications Acetaminophen (Tylenol 325mg Tab) 325 mg PO Q6 PRN PRN Reason: Pain, moderate (4-7) Albuterol (Ventolin Hfa 90 Mcg/Actuation (8 G)) 2 puff INH Q6 PRN PRN Reason: Wheezing Atorvastatin Calcium (Lipitor) 20 mg PO HS [facility] Last Admin: 01/19/17 21:41 Dose: 20 mg Famotidine (Pepcid) 20 mg PO BID [facility] Last Admin: 01/20/17 08:31 Dose: 20 mg Home Med (Patient's Own Medication) 1 unit INH DAILY [facility] Last Admin: 01/20/17 08:30 Dose: 1 unit Metronidazole (Flagyl 500mg/100ml Ns) 100 mls @ 100 mls/hr IVPB Q8 [facility] Last Admin: 01/20/17 08:30 Dose: 100 mls/hr Lactobacillus Acidophilus (Bacid Acidophilus) 2 cap PO Q12 [facility] Last Admin: 01/20/17 08:29 Dose: 2 cap Loratadine (Claritin) 10 mg PO DAILY [facility] Last Admin: 01/20/17 08:31 Dose: 10 mg Nicotine (Nicoderm Cq) 1 patch TD DAILY [facility] Last Admin: 01/20/17 08:37 Dose: 1 patch Tiotropium [place] (Spiriva) 18 mcg INH DAILY [facility] Last Admin: 01/20/17 08:31 Dose: 18 mcg Vancomycin HCl (Vancocin (Oral/Rectal Use)) 125 mg PO TID [facility] PRN Reason: Protocol Stop: 02/02/17 22:00 Vancomycin HCl (Vancocin (Oral/Rectal Use)) 125 mg PO DAILY [facility] PRN Reason: Protocol Stop: 02/09/17 20:00 Vancomycin HCl (Vancocin (Oral/Rectal Use)) 125 mg PO QID [facility] PRN Reason: Protocol Last Admin: 01/20/17 08:32 Dose: 125 mg - Labs Labs: 01/20/17 08:20 01/20/17 08:20
--- NOTE | 2017-01-20 13:43 | CP.PCM.PN ---
Subjective - Date & Time of Evaluation Date of Evaluation: 01/20/17 Time of Evaluation: 13:44 - Subjective Subjective: Patient comfortable. Will hold CT scan she is clinically stable. Will continue iv rx until this Wednesday and will continue po vanco as per schedule Objective - Vital Signs/Intake and Output Vital Signs (last 24 hours): Temp Pulse Resp BP Pulse Ox 98.4 F 71 20 107/65 97 01/20/17 07:59 01/20/17 07:59 01/20/17 07:59 01/20/17 07:59 01/20/17 07:59 - Medications Medications: Current Medications Acetaminophen (Tylenol 325mg Tab) 325 mg PO Q6 PRN PRN Reason: Pain, moderate (4-7) Albuterol (Ventolin Hfa 90 Mcg/Actuation (8 G)) 2 puff INH Q6 PRN PRN Reason: Wheezing Atorvastatin Calcium (Lipitor) 20 mg PO HS [facility] Last Admin: 01/19/17 21:41 Dose: 20 mg Famotidine (Pepcid) 20 mg PO BID [facility] Last Admin: 01/20/17 08:31 Dose: 20 mg Home Med (Patient's Own Medication) 1 unit INH DAILY [facility] Last Admin: 01/20/17 08:30 Dose: 1 unit Metronidazole (Flagyl 500mg/100ml Ns) 100 mls @ 100 mls/hr IVPB Q8 [facility] Last Admin: 01/20/17 08:30 Dose: 100 mls/hr Lactobacillus Acidophilus (Bacid Acidophilus) 2 cap PO Q12 [facility] Last Admin: 01/20/17 08:29 Dose: 2 cap Loratadine (Claritin) 10 mg PO DAILY [facility] Last Admin: 01/20/17 08:31 Dose: 10 mg Nicotine (Nicoderm Cq) 1 patch TD DAILY [facility] Last Admin: 01/20/17 08:37 Dose: 1 patch Tiotropium [place] (Spiriva) 18 mcg INH DAILY [facility] Last Admin: 01/20/17 08:31 Dose: 18 mcg Vancomycin HCl (Vancocin (Oral/Rectal Use)) 125 mg PO TID [facility] PRN Reason: Protocol Stop: 02/02/17 22:00 Vancomycin HCl (Vancocin (Oral/Rectal Use)) 125 mg PO DAILY [facility] PRN Reason: Protocol Stop: 02/09/17 20:00 Vancomycin HCl (Vancocin (Oral/Rectal Use)) 125 mg PO QID [facility] PRN Reason: Protocol Last Admin: 01/20/17 13:00 Dose: 125 mg - Labs Labs: 01/20/17 08:20 01/20/17 08:20 - Constitutional Appears: No Acute Distress - Head Exam Head Exam: ATRAUMATIC, NORMAL INSPECTION, NORMOCEPHALIC - Eye Exam Eye Exam: Normal appearance - ENT Exam ENT Exam: Mucous Membranes Moist - Neck Exam Neck Exam: Full ROM - Respiratory Exam Respiratory Exam: Clear to Ausculation Bilateral - Cardiovascular Exam Cardiovascular Exam: REGULAR RHYTHM, +S1, +S2 - GI/Abdominal Exam GI & Abdominal Exam: Soft, Normal Bowel Sounds - Extremities Exam Extremities Exam: Full ROM - Neurological Exam Neurological Exam: Alert, Awake, CN II-XII Intact, Normal Gait, Oriented x3 - Psychiatric Exam Psychiatric exam: Normal Affect - Skin Skin Exam: Normal Color Assessment and Plan (1) Acute diverticulitis Status: Acute (2) Abdominal pain Status: Acute (3) C. difficile colitis Status: Suspected (4) COPD (chronic obstructive pulmonary disease) Status: Chronic - Assessment and Plan (Free Text) Plan: Continue present rx.
[2017-01-21] MEDS: metroNIDAZOLE 500mg/100ml NS 100 ML IVPB SCH ×3 (01:46→16:38)
[2017-01-21] MEDS: Tiotropium 18 mcg Cap For Inhalation INH SCH (09:16)
[2017-01-21] MEDS: BREO ELLIPTA INH SCH (09:17)
[2017-01-21] MEDS: Vancomycin 500 mg (Oral/Rectal USE) PO SCH ×4 (09:18→21:18)
[2017-01-21] MEDS: Lactobacillus Acidophilus 500 MU Cap PO SCH ×2 (12:28→21:17)
--- NOTE | 2017-01-21 12:43 | CP.PCM.PN ---
Subjective - Date & Time of Evaluation Date of Evaluation: 01/21/17 Time of Evaluation: 12:43 - Subjective Subjective: Improving well Objective - Vital Signs/Intake and Output Vital Signs (last 24 hours): Temp Pulse Resp BP Pulse Ox 97.7 F 64 20 90/59 L 100 01/21/17 07:42 01/21/17 07:42 01/21/17 07:42 01/21/17 07:42 01/21/17 07:42 - Medications Medications: Current Medications Acetaminophen (Tylenol 325mg Tab) 325 mg PO Q6 PRN PRN Reason: Pain, moderate (4-7) Albuterol (Ventolin Hfa 90 Mcg/Actuation (8 G)) 2 puff INH Q6 PRN PRN Reason: Wheezing Atorvastatin Calcium (Lipitor) 20 mg PO HS [facility] Last Admin: 01/20/17 21:23 Dose: 20 mg Famotidine (Pepcid) 20 mg PO BID [facility] Last Admin: 01/21/17 09:16 Dose: 20 mg Home Med (Patient's Own Medication) 1 unit INH DAILY [facility] Last Admin: 01/21/17 09:17 Dose: 1 unit Metronidazole (Flagyl 500mg/100ml Ns) 100 mls @ 100 mls/hr IVPB Q8 [facility] Last Admin: 01/21/17 09:17 Dose: 100 mls/hr Lactobacillus Acidophilus (Bacid Acidophilus) 2 cap PO Q12 [facility] Last Admin: 01/21/17 12:28 Dose: 2 cap Loratadine (Claritin) 10 mg PO DAILY [facility] Last Admin: 01/21/17 09:16 Dose: 10 mg Nicotine (Nicoderm Cq) 1 patch TD DAILY [facility] Last Admin: 01/21/17 09:16 Dose: 1 patch Tiotropium [place] (Spiriva) 18 mcg INH DAILY [facility] Last Admin: 01/21/17 09:16 Dose: 18 mcg Vancomycin HCl (Vancocin (Oral/Rectal Use)) 125 mg PO TID [facility] PRN Reason: Protocol Stop: 02/02/17 22:00 Last Admin: 01/20/17 21:24 Dose: 125 mg Vancomycin HCl (Vancocin (Oral/Rectal Use)) 125 mg PO DAILY [facility] PRN Reason: Protocol Stop: 02/09/17 20:00 Vancomycin HCl (Vancocin (Oral/Rectal Use)) 125 mg PO QID [facility] PRN Reason: Protocol Last Admin: 01/21/17 12:29 Dose: 125 mg - Labs Labs: 01/20/17 08:20 01/20/17 08:20 - Constitutional Appears: No Acute Distress - Head Exam Head Exam: ATRAUMATIC, NORMAL INSPECTION, NORMOCEPHALIC - Eye Exam Eye Exam: Normal appearance - ENT Exam ENT Exam: Mucous Membranes Moist - Neck Exam Neck Exam: Full ROM - Respiratory Exam Respiratory Exam: Clear to Ausculation Bilateral - Cardiovascular Exam Cardiovascular Exam: REGULAR RHYTHM, +S1, +S2 - GI/Abdominal Exam GI & Abdominal Exam: Soft, Normal Bowel Sounds - Neurological Exam Neurological Exam: Alert, Awake, CN II-XII Intact, Normal Gait, Oriented x3 - Psychiatric Exam Psychiatric exam: Normal Affect - Skin Skin Exam: Normal Color Assessment and Plan (1) Acute diverticulitis Status: Acute (2) Abdominal pain Status: Acute (3) C. difficile colitis Status: Suspected (4) COPD (chronic obstructive pulmonary disease) Status: Chronic - Assessment and Plan (Free Text) Plan: Continue present rx.
[2017-01-22] MEDS: metroNIDAZOLE 500mg/100ml NS 100 ML IVPB SCH ×3 (01:15→16:15)
[2017-01-22 08:01] VITALS: O2SAT 99
[2017-01-22] MEDS: Lactobacillus Acidophilus 500 MU Cap PO SCH (08:22)
[2017-01-22] MEDS: Vancomycin 500 mg (Oral/Rectal USE) PO SCH ×4 (08:22→16:15)
[2017-01-22] MEDS: Tiotropium 18 mcg Cap For Inhalation INH SCH (08:22)
[2017-01-22] MEDS: BREO ELLIPTA INH SCH (08:22)
--- NOTE | 2017-01-22 11:12 | CP.PCM.PN ---
Subjective - Date & Time of Evaluation Date of Evaluation: 01/22/17 Time of Evaluation: 11:12 Objective - Vital Signs/Intake and Output Vital Signs (last 24 hours): Temp Pulse Resp BP Pulse Ox 97.6 F 61 20 107/67 99 01/22/17 08:00 01/22/17 08:00 01/22/17 08:00 01/22/17 08:00 01/22/17 08:00 - Medications Medications: Current Medications Acetaminophen (Tylenol 325mg Tab) 325 mg PO Q6 PRN PRN Reason: Pain, moderate (4-7) Albuterol (Ventolin Hfa 90 Mcg/Actuation (8 G)) 2 puff INH Q6 PRN PRN Reason: Wheezing Atorvastatin Calcium (Lipitor) 20 mg PO HS [facility] Last Admin: 01/21/17 21:18 Dose: 20 mg Famotidine (Pepcid) 20 mg PO BID [facility] Last Admin: 01/22/17 08:22 Dose: 20 mg Home Med (Patient's Own Medication) 1 unit INH DAILY [facility] Last Admin: 01/22/17 08:22 Dose: 1 unit Metronidazole (Flagyl 500mg/100ml Ns) 100 mls @ 100 mls/hr IVPB Q8 [facility] Last Admin: 01/22/17 09:47 Dose: 100 mls/hr Lactobacillus Acidophilus (Bacid Acidophilus) 2 cap PO Q12 [facility] Last Admin: 01/22/17 08:22 Dose: 2 cap Loratadine (Claritin) 10 mg PO DAILY [facility] Last Admin: 01/22/17 08:22 Dose: 10 mg Nicotine (Nicoderm Cq) 1 patch TD DAILY [facility] Last Admin: 01/22/17 08:21 Dose: 1 patch Tiotropium [place] (Spiriva) 18 mcg INH DAILY [facility] Last Admin: 01/22/17 08:22 Dose: 18 mcg Vancomycin HCl (Vancocin (Oral/Rectal Use)) 125 mg PO TID [facility] PRN Reason: Protocol Stop: 02/02/17 22:00 Last Admin: 01/22/17 08:22 Dose: 125 mg Vancomycin HCl (Vancocin (Oral/Rectal Use)) 125 mg PO DAILY [facility] PRN Reason: Protocol Stop: 02/09/17 20:00 Vancomycin HCl (Vancocin (Oral/Rectal Use)) 125 mg PO QID [facility] PRN Reason: Protocol Last Admin: 01/21/17 21:18 Dose: 125 mg - Labs Labs: 01/20/17 08:20 01/20/17 08:20 Assessment and Plan (1) Acute diverticulitis Status: Acute (2) COPD (chronic obstructive pulmonary disease) Status: Chronic
--- NOTE | 2017-01-22 11:49 | CP.PCM.DIS ---
Provider - Provider Date of Admission: 01/12/17 14:40 Attending physician: Juan Davis MD Primary care physician: Juan Davis MD Time Spent in preparation of Discharge (in minutes): 30 Diagnosis - Discharge Diagnosis (1) Acute diverticulitis Status: Acute Priority: Medium (2) Abdominal pain Status: Acute (3) C. difficile colitis Status: Suspected Priority: High (4) COPD (chronic obstructive pulmonary disease) Status: Chronic Priority: Medium Hospital Course - Lab Results Lab Results: Most Recent Lab Values WBC 8.2 K/uL (4.8-10.8) 01/20/17 08:20 RBC 4.35 Mil/uL (3.80-5.20) 01/20/17 08:20 Hgb 13.4 g/dL (12.0-16.0) 01/20/17 08:20 Hct 39.5 % (34.0-47.0) 01/20/17 08:20 MCV 90.8 fl (81.0-99.0) 01/20/17 08:20 MCH 30.9 pg (27.0-31.0) 01/20/17 08:20 MCHC 34.0 g/dL (33.0-37.0) 01/20/17 08:20 RDW 15.0 % (11.5-14.5) H 01/20/17 08:20 Plt Count 335 K/uL (130-400) 01/20/17 08:20 MPV 10.3 fl (7.2-11.7) 01/20/17 08:20 Neut % (Auto) 73.3 % (50.0-75.0) 01/20/17 08:20 Lymph % (Auto) 18.2 % (20.0-40.0) L 01/20/17 08:20 [place] % (Auto) 5.0 % (0.0-10.0) 01/20/17 08:20 Eos % (Auto) 2.5 % (0.0-4.0) 01/20/17 08:20 Baso % (Auto) 1.0 % (0.0-2.0) 01/20/17 08:20 Neut # 6.0 K/uL (1.8-7.0) 01/20/17 08:20 Lymph # 1.5 K/uL (1.0-4.3) 01/20/17 08:20 [place] # 0.4 K/uL (0.0-0.8) 01/20/17 08:20 Eos # 0.2 K/uL (0.0-0.7) 01/20/17 08:20 Baso # 0.1 K/uL (0.0-0.2) 01/20/17 08:20 Sodium 138 mmol/l (132-148) 01/20/17 08:20 Potassium 3.7 MMOL/L (3.6-5.0) 01/20/17 08:20 Chloride 103 mmol/L (98-107) 01/20/17 08:20 Carbon Dioxide 24 mmol/L (22-30) 01/20/17 08:20 Anion Gap 15 (10-20) 01/20/17 08:20 BUN 15 mg/dl (7-17) 01/20/17 08:20 Creatinine 1.0 mg/dl (0.7-1.2) 01/20/17 08:20 Est GFR ( Amer) > 60 01/20/17 08:20 Est GFR (Non-Af Amer) 55 01/20/17 08:20 Random Glucose 187 mg/dL (65-105) H 01/20/17 08:20 Calcium 9.3 mg/dL (8.4-10.2) 01/20/17 08:20 - Hospital Course Hospital Course: Patient improving well on present rx, vanco po and flagyl iv. After a conversation with ID media sales consultant will continue the present therapy for better coverage of C.Diff and for diverticulitis. Patient presented with failure to OP rx with recurrence of colitis and diverticulitis. It was clinically necessary to continue on the present dual rx, in consideration of the significant positive clinical response, for the best interest of the patient care and prevent possible relapse of her condition.Will continue po vanco at home on schedule as instructed, F/U in my office in 2 weeks f/u with GI in 4 weeks patient and family are aware of necessity to have colonoscopy to r/o cancer. Discharge Exam - Head Exam Head Exam: ATRAUMATIC, NORMAL INSPECTION, NORMOCEPHALIC - Eye Exam Eye Exam: Normal appearance Pupil Exam: NORMAL ACCOMODATION - ENT Exam ENT Exam: Mucous Membranes Moist - Neck Exam Neck exam: Full Rom - Respiratory Exam Respiratory Exam: Clear to PA & Lateral - Cardiovascular Exam Cardiovascular Exam: REGULAR RHYTHM, +S1, +S2 - GI/Abdominal Exam GI & Abdominal Exam: Normal Bowel Sounds - Extremities Exam Extremities exam: normal inspection - Neurological Exam Neurological exam: Alert, CN II-XII Intact, Normal Gait, Oriented x3, Reflexes Normal - Psychiatric Exam Psychiatric exam: Normal Affect - Skin Skin Exam: Normal Color Discharge Plan - Follow Up Plan Condition: GOOD Disposition: HOME/ ROUTINE Referrals: Juan Davis MD [Primary Care Provider] -
[2017-01-22 16:11] VITALS: BP 118/83; PULSE 68; TEMP 97.7
[2017-02-02] MEDS ORDERED: Vancomycin 500 mg (Oral/Rectal USE) PO SCH (09:00)
== END 2017-01-22 18:16 | disposition home or self-care (01) | DRG 392 ==
LOC: H.TCU 14:40
PROVIDERS: ADMIT Internal Medicine; ATTEND Internal Medicine
PROC: 3E03329 Introduction of Other Anti-infective into Peripheral Vein, Percutaneous Approach (ICD-10-PCS; principal; 2017-01-12)
PROC: F07Z9FZ Gait Training/Functional Ambulation Treatment using Assistive, Adaptive, Supportive or Protective Equipment (ICD-10-PCS; 2017-01-12)
PROC: F08Z4FZ Home Management Treatment using Assistive, Adaptive, Supportive or Protective Equipment (ICD-10-PCS; 2017-01-12)
PROC: F07M6FZ Therapeutic Exercise Treatment of Musculoskeletal System - Whole Body using Assistive, Adaptive, Supportive or Protective Equipment (ICD-10-PCS; 2017-01-13)
DX: K57.92 Diverticulitis of intestine, part unspecified, without perforation or abscess without bleeding (principal); A04.72 Enterocolitis due to Clostridium difficile, not specified as recurrent; J44.9 Chronic obstructive pulmonary disease, unspecified; E78.5 Hyperlipidemia, unspecified; F17.210 Nicotine dependence, cigarettes, uncomplicated

== ENCOUNTER 2017-05-19 23:13 | Emergency (ER) | payer MEDICARE ==
[2017-05-19 23:14] VITALS: BMI 23.8
[2017-05-19 23:18] VITALS: TEMP 98.1
[2017-05-19] MEDS ORDERED: Sodium Chloride 0.9% 1,000 ML IV STA (23:43)
--- NOTE | 2017-05-19 23:59 | ED PDOC ---
"HPI: Abdomen Time Seen by Provider: 05/19/17 23:38 Chief Complaint (Nursing): Abdominal Pain History Per: Patient History/Exam Limitations: no limitations Onset/Duration Of Symptoms: Hrs Outside of [place] travel?: No Current Symptoms Are (Timing): Still Present Severity: None Location Of Pain/Discomfort: LLQ Exacerbating Factors: Movement Additional Complaint(s): Hx of HLD, diverticulitis p/w LLQ pain x 1 day, states that she felt dizzy all day with light-headedness and room spinning sensation and around 7PM started developing cramping LLQ pain. Denies nausea, vomiting, diarrhea, but states she 's had small, hard BM's today. No fevers/chills. Surg hx: . Past Medical History Vital Signs: Last Vital Signs Temp 98.1 F 05/19/17 23:15 Pulse 86 05/19/17 23:15 Resp 16 05/19/17 23:15 BP 166/78 H 05/19/17 23:15 Pulse Ox 99 05/19/17 23:58 - Medical History PMH: Anxiety, Bronchitis, COPD, Depression, Diverticulitis, Hypercholesterolemia Denies: Chronic Kidney Disease - Surgical History Surgical History: Appendectomy, - Family History Family History: States: Unknown Family Hx - Immunization History Hx Tetanus Toxoid Vaccination: Yes Hx Influenza Vaccination: Yes Hx Pneumococcal Vaccination: No - Home Medications Home Medications: Ambulatory Orders Medication Instructions Recorded Albuterol HFA [Ventolin HFA 90 2 puff INH Q6 PRN 01/06/17 mcg/actuation (8 g)] Rosuvastatin Calcium [Crestor] 10 mg PO HS 01/06/17 Ciprofloxacin [Cipro] 500 mg PO BID 7 Days tab 05/20/17 metroNIDAZOLE [Flagyl] 500 mg PO BID 7 Days tab 05/20/17 - Allergies Allergies/Adverse Reactions: Allergies Allergy/AdvReac Type Severity Reaction Status Date / Time No Known Allergies Allergy Verified 05/19/17 23:15 Review of Systems ROS Statement: Except As Marked, All Systems Reviewed And Found Negative Gastrointestinal: Positive for: Abdominal Pain Neurological: Positive for: Dizziness Physical Exam - Reviewed Nursing Documentation Reviewed: Yes Vital Signs Reviewed: Yes - Physical Exam Appears: Positive for: Well, Non-toxic, No Acute Distress Head Exam: Positive for: ATRAUMATIC, NORMAL INSPECTION, NORMOCEPHALIC Skin: Positive for: Normal Color, Warm, DRY Eye Exam: Positive for: EOMI, Normal appearance, PERRL ENT: Positive for: Normal ENT Inspection Neck: Positive for: Normal, Painless ROM Cardiovascular/Chest: Positive for: Regular Rate, Rhythm Respiratory: Positive for: CNT, Normal Breath Sounds Gastrointestinal/Abdominal: Positive for: Soft, Tenderness (LLQ TTP to minimal palpation), Guarding (voluntary). Negative for: Mass, Distended, Rebound Back: Positive for: Normal Inspection Extremity: Positive for: Normal ROM Neurologic/Psych: Positive for: Alert, enamel dipper II-XII, Oriented. Negative for: Motor/Sensory Deficits, Aphasia - Laboratory Results Result Diagrams: 05/20/17 00:20 05/20/17 00:20 - ECG O2 Sat by Pulse Oximetry: 99 Medical Decision Making Medical Decision MakinPM A/P: Hx of HLD, diverticulitis in the past p/w LLQ and dizziness -patient tender in LLQ, possibly resurgence of diverticulitis -dizziness probably related to infection, also patient states she only drank very little water today, possibly dehydrated, will give fluids -pending labs and CT 2AM Patient has significantly improved, no longer having pain. CT shows: EXAM: CT Abdomen and Pelvis With Intravenous Contrast CLINICAL HISTORY: 66 years old, female; Pain; Abdominal pain; Generalized; Prior surgery; Surgery date: 6+ months; Surgery type: and appendectomy; Patient HX: See phys doc; Additional info: HX of diverticulitis p/w llq pain TECHNIQUE: Axial computed tomography images of the abdomen and pelvis with intravenous contrast. All CT scans at this facility use one or more dose reduction techniques, viz.: automated exposure control; ma/kV adjustment per patient size (including targeted exams where dose is matched to indication; i.e. head); or iterative reconstruction technique. Coronal and sagittal reformatted images were created and reviewed. CONTRAST: 90 mL of OMNI 300 administered intravenously. COMPARISON: No relevant prior studies available. FINDINGS: Lung bases: There is minimal bibasilar atelectasis. ABDOMEN: Liver: Unremarkable. No mass. Gallbladder and bile ducts: Unremarkable. No calcified stones. No ductal dilation. Pancreas: Unremarkable. No mass. No ductal dilation. Spleen: Unremarkable. No splenomegaly. Adrenals: Unremarkable. No mass. Kidneys and ureters: Unremarkable. No solid mass. No hydronephrosis. Stomach and bowel: Extensive diverticulosis is present in the sigmoid and descending colon. There is minimal stranding at the fat adjacent to the sigmoid colon. No obstruction. Appendix: No findings to suggest acute appendicitis. Normal appendix. PELVIS: Bladder: Unremarkable. No mass. Reproductive: Unremarkable as visualized. NIS[facility] [place] | Final Radiology Report CONFIDENTIALITY STATEMENT This report is intended only for use by the referring physician, and only in accordance with law. If you received this in error, call [phone]. Page 2 of 2 ABDOMEN and PELVIS: Intraperitoneal space: Unremarkable. No free air. No significant fluid collection. Bones/joints: No acute fracture. No dislocation. Soft tissues: Unremarkable. Vasculature: The vasculature demonstrates diffuse moderate atherosclerotic calcification. The proximal aorta is mildly ectatic measuring up to 2.8 cm with mural thrombus and wall calcification. No abdominal aortic aneurysm. Lymph nodes: Unremarkable. No enlarged lymph nodes. IMPRESSION: Extensive diverticulosis with minimal stranding of the fat adjacent to the sigmoid colon. Mild sigmoid diverticulitis is not excluded. Thank you for allowing us to participate in the care of your patient. Dictated and Authenticated by: Génesis Pop MD 05/20/2017 3:15 AM Eastern Time ([place] & [place]) Will treat for mild diverticuliits and d/c home w/ GI referral. Patient well appearing, tolerating PO. Disposition - Clinical Impression Clinical Impression: Diverticulitis, Diverticulosis - Patient ED Disposition Is Patient to be Admitted: No - Disposition Referrals: Juan Davis MD [Family Provider] - Quinton Reed MD [Staff Provider] - Disposition: Routine/Home Disposition Time: 04:38 Condition: IMPROVED Prescriptions: Ciprofloxacin [Cipro] 500 mg PO BID 7 Days tab metroNIDAZOLE [Flagyl] 500 mg PO BID 7 Days tab Instructions: Diverticulitis, Diverticulosis, High Fiber Diet Forms: [facility] (Urdu) Print Language: ETHIOPIAN"
[2017-05-20 00:23] LABS: BASO # 0.1 K/uL (0.0-0.2); BASO % 1.3 % (0.0-2.0); EOS # 0.3 K/uL (0.0-0.7); EOS % 2.7 % (0.0-4.0); HEMOGLOBIN 13.9 g/dL (12.0-16.0); LYMPH # 2.8 K/uL (1.0-4.3); LYMPH % 29.3 % (20.0-40.0); MEAN CELL VOLUME 89.6 fl (81.0-99.0); MEAN CORPUSCULAR HEMOGLOBIN 30.4 pg (27.0-31.0); MEAN CORPUSCULAR HGB CONC 33.9 g/dL (33.0-37.0); MEAN PLATELET VOLUME 10.2 fl (7.2-11.7); MONO # 0.8 K/uL (0.0-0.8); MONO % 8.1 % (0.0-10.0); NEUT # 5.6 K/uL (1.8-7.0); NEUT % 58.6 % (50.0-75.0); NRBC % 0.1 % (0.0-0.0); RBC 4.58 Mil/uL (3.80-5.20); RED CELL DISTRIBUTION WIDTH 13.9 % (11.5-14.5); WHITE BLOOD COUNT 9.5 K/uL (4.8-10.8)
[2017-05-20 00:32] LABS: ALB/GLOB RATIO 1.1 (1.0-2.1); ALBUMIN 4.1 g/dL (3.5-5.0); CALCIUM 9.9 mg/dL (8.4-10.2)
[2017-05-20 00:49] LABS: SQUAMOUS EPITHIAL < 1 /hpf (0-5); URINE BACTERIA RARE (<OCC); URINE BILIRUBIN NEGATIVE (NEGATIVE); URINE BLOOD NEGATIVE (NEGATIVE); URINE CLARITY CLEAR (Clear); URINE COLOR STRAW (YELLOW); URINE GLUCOSE (UA) NEG (Normal); URINE LEUKOCYTE ESTERASE NEG Leu/uL (Negative); URINE PROTEIN NEGATIVE (NEGATIVE); URINE UROBILINOGEN 0.2-1.0 mg/dL (0.2-1.0)
[2017-05-20] MEDS ORDERED: Iohexol 300 100 ML IJ ONE (01:35)
--- NOTE | 2017-05-20 03:15 | CT ---
EXAM: CT Abdomen and Pelvis With Intravenous Contrast CLINICAL HISTORY: 66 years old, female; Pain; Abdominal pain; Generalized; Prior surgery; Surgery date: 6+ months; Surgery type: and appendectomy; Patient HX: See phys doc; Additional info: HX of diverticulitis p/w llq pain TECHNIQUE: Axial computed tomography images of the abdomen and pelvis with intravenous contrast. All CT scans at this facility use one or more dose reduction techniques, viz.: automated exposure control; ma/kV adjustment per patient size (including targeted exams where dose is matched to indication; i.e. head); or iterative reconstruction technique. Coronal and sagittal reformatted images were created and reviewed. CONTRAST: 90 mL of OMNI 300 administered intravenously. COMPARISON: No relevant prior studies available. FINDINGS: Lung bases: There is minimal bibasilar atelectasis. ABDOMEN: Liver: Unremarkable. No mass. Gallbladder and bile ducts: Unremarkable. No calcified stones. No ductal dilation. Pancreas: Unremarkable. No mass. No ductal dilation. Spleen: Unremarkable. No splenomegaly. Adrenals: Unremarkable. No mass. Kidneys and ureters: Unremarkable. No solid mass. No hydronephrosis. Stomach and bowel: Extensive diverticulosis is present in the sigmoid and descending colon. There is minimal stranding at the fat adjacent to the sigmoid colon. No obstruction. Appendix: No findings to suggest acute appendicitis. Normal appendix. PELVIS: Bladder: Unremarkable. No mass. Reproductive: Unremarkable as visualized. ABDOMEN and PELVIS: Intraperitoneal space: Unremarkable. No free air. No significant fluid collection. Bones/joints: No acute fracture. No dislocation. Soft tissues: Unremarkable. Vasculature: The vasculature demonstrates diffuse moderate atherosclerotic calcification. The proximal aorta is mildly ectatic measuring up to 2.8 cm with mural thrombus and wall calcification. No abdominal aortic aneurysm. Lymph nodes: Unremarkable. No enlarged lymph nodes. IMPRESSION: Extensive diverticulosis with minimal stranding of the fat adjacent to the sigmoid colon. Mild sigmoid diverticulitis is not excluded.
[2017-05-20] MEDS ORDERED: Ciprofloxacin 400mg/200ml D5W 400 MG/200 ML BAG IVPB STA (03:25)
[2017-05-20] MEDS ORDERED: metroNIDAZOLE 500mg/100ml NS 100 ML IVPB STA (03:26)
[2017-05-20] MEDS ORDERED: Dextrose 5%/0.45% NS 1,000 ML IV SCH (04:15)
[2017-05-20] MEDS ORDERED: metroNIDAZOLE 500mg/100ml NS 100 ML IVPB ONE (04:34)
[2017-05-20 06:03] VITALS: BP 154/83; PULSE 84; RESP 17; O2SAT 98
== END 2017-05-20 05:55 | disposition home or self-care (01) ==
LOC: H.ER 23:13
DX: K57.30 Diverticulosis of large intestine without perforation or abscess without bleeding (principal); E78.00 Pure hypercholesterolemia, unspecified; F32.9 Major depressive disorder, single episode, unspecified; F41.9 Anxiety disorder, unspecified; J44.9 Chronic obstructive pulmonary disease, unspecified; Z90.49 Acquired absence of other specified parts of digestive tract
CPT/HCPCS: 74177; 80053; 81003; 83605; 83690; 85025; 87040; 87086; 96361; 96365; 96367; 96375; 99284; J0744; J1885; J2405; J7040; Q9967